=== PATIENT | female | born 1940 | race Caucasian/White ===

== ENCOUNTER → 2021-08-01 | Outpatient (CLI) | payer MEDICARE, OTHER ==
[~2021-08-01] MED LIST: ASPIRIN CHEWABL81 MG PO; ELIQUIS5 M1 PO; LASIX40 MG PO; LISINOPRIL5 MG PO; LOPRESSOR 50 MG50 MG PO
== END ==
LOC: HEART 5 09:51
DX: I50.22 Chronic systolic (congestive) heart failure (principal); R06.02 Shortness of breath; I27.20 Pulmonary hypertension, unspecified; I07.1 Rheumatic tricuspid insufficiency
CPT/HCPCS: 93306

== ENCOUNTER 2021-10-28 11:53 | Emergency (ER) | payer MEDICARE ==
[2021-10-28 12:35] LABS: HEMOGLOBIN 16.1 gm/dl (12.3-15.3); RED BLOOD COUNT 5.17 M/UL (4.00-5.10); WHITE BLOOD COUNT 9.3 K/UL (4.5-11.0)
[2021-10-28 13:04] LABS: BUN/CREATININE RATIO 19 (0-10)
[2021-10-28] MEDS ORDERED: CYCLOBENZAPRINE5 MG PO (17:11)
== END 2021-10-28 17:19 | disposition home or self-care (01) ==
LOC: ER1 11:53
PROVIDERS: Student in an Organized Health Care Education/Training Program
DX: M51.34 Other intervertebral disc degeneration, thoracic region (principal); I48.20 Chronic atrial fibrillation, unspecified; I11.0 Hypertensive heart disease with heart failure; I50.9 Heart failure, unspecified; I25.10 Atherosclerotic heart disease of native coronary artery without angina pectoris; E11.9 Type 2 diabetes mellitus without complications; Z86.718 Personal history of other venous thrombosis and embolism; Z79.01 Long term (current) use of anticoagulants; Z86.711 Personal history of pulmonary embolism
CPT/HCPCS: 71045; 72128; 80053; 81001; 82550; 82553; 84484; 85025; 85379; 87086; 93005; 99284